=== PATIENT | female | born 1990 | race Caucasian/White ===

== ENCOUNTER 2023-07-28 19:22 | Emergency (ER) | payer SELFPAY ==
[~2023-07-28] VITALS: Ht 170.2 cm; Wt 115.0 kg
[2023-07-28 19:25] VITALS: O2SAT 98
[2023-07-28 20:46] VITALS: BP 95/62; PULSE 89; RESP 18; TEMP 98.9
[2023-07-28] MEDS ORDERED: DICYCLOMINE 10 MG/5 ML ORAL SYR PO STA (21:12)
[2023-07-28] MEDS: ONDANSETRON 4MG ODT PO STA (21:31)
[2023-07-28] MEDS: FAMOTIDINE 20MG TABLET PO ONE (21:31)
[2023-07-28] MEDS: MAGNESIUM/ALUMINUM HYDROXIDE/SIMETHICONE 30ML UDC PO STA (21:31)
[2023-07-28 21:38] LABS: BASOPHILS % 0.4 % (0.0-2.0); DIFFERENTIAL COMMENT 0; EOSINOPHILS % 1.8 % (0.0-5.0); HEMATOCRIT. 35.6 % (36.0-48.0); HEMOGLOBIN. 12.2 g/dL (12.0-16.0); LYMPHOCYTES % 24.8 % (20.0-50.0); MEAN CORPUSCULAR HEMOGLOBIN 27.3 pg (28.0-32.0); MEAN CORPUSCULAR HGB CONC 34.2 g/dL (31.0-37.0); MEAN CORPUSCULAR VOLUME 79.8 fL (81.0-99.0); MEAN PLATELET VOLUME 8.2 fl (7.4-10.4); MONOCYTES % 9.4 % (2.0-8.0); NEUTROPHILS % 63.6 % (40.0-76.0); PLATELET 210 x1000/uL (130-400); RED BLOOD CELL COUNT 4.46 mill/uL (4.2-5.4); RED CELL DISTRIBUTION WIDTH 14.5 % (11.6-14.6); WHITE BLOOD COUNT 5.2 x1000/uL (4.5-11.0)
[2023-07-28 21:43] LABS: CHLORIDE 109 mEq/L (98-107); POTASSIUM 3.8 mEq/L (3.5-5.1); SODIUM 138 mEq/L (136-145)
[2023-07-28 21:44] LABS: CARBON DIOXIDE 26 mEq/L (21-32)
[2023-07-28 21:49] LABS: CREATININE 0.5 mg/dL (0.6-1.0); GLUCOSE 97 mg/dL (70-105); UREA NITROGEN BLOOD 14 mg/dL (9-23)
[2023-07-28 21:51] LABS: ALANINE AMINOTRANSFERASE 18 IU/L (10-49); ALBUMIN 3.7 g/dL (3.2-4.8); ASPARTATE AMINOTRANSFERASE 20 IU/L (<34); BILIRUBIN DIRECT < 0.1 mg/dL (<=3.0); BILIRUBIN TOTAL 0.2 mg/dL (0.1-1.0); PROTEIN TOTAL 6.2 g/dL (6.0-8.3)
[2023-07-28 21:57] LABS: HCG SCREEN NEGATIVE
[2023-07-28] MEDS: DICYCLOMINE HCL 10MG CAPSULE PO NR (22:15)
== END 2023-07-29 00:45 | disposition home or self-care (01) ==
LOC: ER 19:22
DX: R10.9 Unspecified abdominal pain (principal); F45.8 Other somatoform disorders; J45.909 Unspecified asthma, uncomplicated
CPT/HCPCS: 99284; 76856; 80076; 80048; 84703; 83690; 85025; 36415; Q0162

== ENCOUNTER 2023-07-29 03:44 | Emergency (ER) | payer OTHER ==
[~2023-07-29] VITALS: Ht 172.7 cm; Wt 109.0 kg
[2023-07-29 04:06] VITALS: BP 126/61; PULSE 84; RESP 16; TEMP 98.4; O2SAT 100
== END 2023-07-29 05:56 | disposition left against medical advice (07) ==
LOC: ER 03:44
DX: R10.9 Unspecified abdominal pain (principal); Z53.21 Procedure and treatment not carried out due to patient leaving prior to being seen by health care provider